=== PATIENT | male | born 1995 | race Caucasian/White ===

== ENCOUNTER 2018-01-18 10:50 | Emergency (ER) | payer OTHER ==
[2018-01-18 13:15] VITALS: BP 140/77
--- NOTE | 2018-01-18 13:37 | UC ---
UC General HPI - HPI Summary HPI Summary: 22 yo gentleman c/o nasal congestion, sniffles last 2-3 days; however, this morning awoke with cough, fever, achy all over, headache. No n/v. No rash. Current symptoms started suddenly. - History of Current Complaint Chief Complaint: UCGeneralIllness Stated Complaint: FLU SYMPTOMS Time Seen by Provider: 01/18/18 13:18 Hx Obtained From: Patient Pain Intensity: 0 - Allergy/Home Medications Allergies/Adverse Reactions: Allergies Allergy/AdvReac Type Severity Reaction Status Date / Time No Known Allergies Allergy Verified 01/18/18 13:15 PMH/Surg Hx/FS Hx/Imm Hx Previously Healthy: Yes - Surgical History Surgical History: Yes Surgery Procedure, Year, and Place: R AND L HIP IMPINGEMENT REPAIR, 3RD METACARPAL - Family History Known Family History: Positive: None - Social History Alcohol Use: Weekly Substance Use Type: Marijuana Smoking Status (MU): Never Smoked Tobacco Review of Systems Constitutional: Fever Skin: Negative Eyes: Negative ENT: Sore Throat, Nasal Discharge, Sinus Congestion Respiratory: Cough Cardiovascular: Negative Gastrointestinal: Negative Genitourinary: Negative Motor: Negative Neurovascular: Negative Musculoskeletal: Myalgia Neurological: Headache - not described as wol Psychological: Negative Is Patient Immunocompromised?: No All Other Systems Reviewed And Are Negative: Yes Physical Exam Triage Information Reviewed: Yes Appearance: Well-Nourished - sitting up. conversing in full sentances. Vital Signs: Initial Vital Signs Temp 99.2 F 01/18/18 13:11 Pulse 80 01/18/18 13:11 Resp 18 01/18/18 13:11 BP 140/77 01/18/18 13:11 Pulse Ox 100 01/18/18 13:11 Vital Signs Reviewed: Yes Eye Exam: Normal ENT: Positive: Pharyngeal erythema - mild redness, uvula midline. no sores or exudates, Nasal drainage - clear, TM dull - TMs [place] Neck exam: Normal Neck: Positive: Supple, Nontender, No Lymphadenopathy Respiratory Exam: Normal - + cough Respiratory: Positive: Chest non-tender, Lungs clear, Normal breath sounds, No respiratory distress, No accessory muscle use Cardiovascular Exam: Normal - HR correlates with R radial pulse Cardiovascular: Positive: No Murmur, Pulses Normal, Brisk Capillary Refill, Tachycardia Abdominal Exam: Normal Abdomen Description: Positive: Nontender Bowel Sounds: Positive: Present Musculoskeletal Exam: Normal - gait steady, moves x 4 ext's Neurological Exam: Normal - grossly nonfocal Psychological Exam: Normal - conversing easily and appropriately Skin Exam: Normal - non-diaphoretic. no visible or reported rash. Course/Dx - Course Course Of Treatment: Influenza A/B - negative. 14:45 - reviewed results with Mr. Prather. I am highly suspicious of influenza, despite neg nasal swab. Will check CXR. However, will rx via Tamiflu as part of treatment plan. D/w Mr. Prather coa / tx plan, he expresses understanding and agreement. 14:45 - reviewed CXR with radiologist. ASHUTOSH. D/w result with Mr. Prather. Rx as per d /c instructions. Questions as posed answered to the best of my ability. He was made aware of the need to go to the ED if worse or new symptoms. Declines rx anti-emetic, albuterol. - Differential Dx - Multi-Symptom Provider Diagnoses: Influenza - highly suspicious. Bronchitis Discharge - Discharge Plan Condition: Stable Disposition: HOME Prescriptions: Amoxicillin PO (*) [Amoxicillin 875 MG (*)] 875 mg PO BID #20 tab Oseltamivir CAP* [Tamiflu CAP*] 75 mg PO BID #10 cap Patient Education Materials: Influenza (ED), Acute Bronchitis (ED) Forms: *School Release Referrals: Non Staff,Doctor [Primary Care Provider] - Additional Instructions: Follow up with your primary care physician, per routine. Please seek medical attention for worse or new problems. Drink plenty of fluids. ] Your influenza nasal swab was negative; however, your syptoms are highly suggestive of influenza. As such, please do not return to classes until you no longer have a fever for at least 24 hours (without ibuprofen or tylenol).
--- NOTE | 2018-01-18 14:55 | RAD ---
Indication: Cough, fever. 2 views of the chest including dual energy PA views demonstrates no mediastinal shift. Heart is of normal size and configuration. Lung neves appear clear. IMPRESSION: No active cardiopulmonary disease is noted.
== END 2018-01-18 15:03 | disposition home or self-care (01) ==
LOC: UCCORT 10:50
DX: J11.1 Influenza due to unidentified influenza virus with other respiratory manifestations (principal); J40 Bronchitis, not specified as acute or chronic
CPT/HCPCS: 71046; 87502; 99202; G0463